=== PATIENT | female | born 1960 | race Caucasian/White ===

== ENCOUNTER 2019-11-21 15:43 | Emergency (ER) | payer OTHER, SELFPAY ==
--- NOTE | ~2019-11-21 | XR_ITS ---
EXAMINATION: XR knee LT min 4V DATE: 11/21/2019 INDICATION: 2 weeks of anterior left knee pain post fall TECHNIQUE: Anteroposterior, 2 oblique, sunrise and crosstable lateral views of the left knee were obt ained COMPARISON: None. FINDINGS: Alignment is normal. No fracture. Osteoarthritis in the medial and patellofemoral compartments with marginal osteophytes and at least moderate joint space narrowing in the medial compartment. Severity of joint space narrowing can however be underestimated on nonweightbearing imaging. Small left knee j oint effusion without layering lipohemarthrosis. There are loose osteochondral bodies in the recesses posterior to the intercondylar notch. Mild infrapatellar soft tissue swelling. IMPRESSION: 1. Small left knee joint effusion without layering lipohemarthrosis or acute osseous abnormality. 2. At least moderate medial compartment predominant osteoarthritis at the left knee. Reviewed, dictated and finalized at location A. IMPRESSION: 1. Small left knee joint effusion without layering lipohemarthrosis or acute os seous abnormality. 2. At least moderate medial compartment predominant osteoarthritis at the left knee.
[2019-11-21 15:50] VITALS: BP 153/88; PULSE 98; RESP 18; TEMP 37.1; O2SAT 96
--- NOTE | 2019-11-21 16:22 | ED.GENADULT ---
HPI - General Adult General Chief complaint: Extremity Injury, Lower Stated complaint: left knee injured Time Seen by Provider: 11/21/19 16:22 Source: patient and RN notes reviewed Mode of arrival: ambulatory Limitations: no limitations History of Present Illness HPI narrative: 58-year-old female presents with complains of left diffuse knee pain and swelling for the past 14 days. Sonya says she fell onto left knee causing injury. Pain increased over the last 24 hours. Knee brace and Tylenol (last today) without relief. History of chronic LT knee pain. No radiation of pain. No numbness or tingling, or bleeding. No loss of mobility. Exacerbating factor consist of bearing weight. No fever or chills. Denies discoloration. Remains active. The patient reports she have not been diagnosed with COVID-19. The patient reports she is not waiting for the results of a COVID-19 lab test. The patient reports she do not have fever, chills, weakness, or fatigue. The patient reports she do not have a new or worsening cough or shortness of breath. Denies chest pain. The patient reports she do not have any rhinorrhea, congestion, sore throat, loss of taste, nausea, vomiting, abdominal pain, and diarrhea. Tolerating po intake well. Denies recent traveling. Denies concerns for COVID-19 or exposures been home with limited outdoor exposure except for essential household needs and return home. At this time, patient is not suspected of having COVID-19. Some parts of this dictation were generated by voice recognition software and may contain typographical and/or grammatical inaccuracies. Related Data Home Medications Medication Instructions Recorded Confirmed No Home Medications 11/21/19 11/21/19 Allergies Allergy/AdvReac Type Severity Reaction Status Date / Time aspirin AdvReac Ulcers Verified 11/21/19 16:16 ibuprofen [From Motrin] AdvReac Ulcers Verified 11/21/19 16:15 Review of Systems Review of Systems: Narrative: CONSTITUTIONAL: Denies fever, chills, sweats. EYES: Denies visual changes, redness, discharge. ENT: Denies rhinorrhea, congestion, sore throat, otalgia. CARDIOVASCULAR: Denies chest pain, palpitations, edema. RESPIRATORY: Denies dyspnea, wheezing, cough. GASTROINTESTINAL: Denies abdominal pain, nausea, vomiting, diarrhea. GENITOURINARY: Denies dysuria, hematuria, abnormal discharge SKIN: Denies rash or itching. MUSCULOSKELETAL: Denies acute back pain or myalgia. Complains of left diffuse knee pain and swelling. NEUROLOGIC: Denies numbness or focal weakness. PSYCHIATRIC: Denies anxiety or depression. All other systems reviewed & are unremarkable except as noted in HPI and below. [facility] Past Medical History Medical History (Updated 11/22/19 @ 00:00 by Jerzy Gilbert) COPD (chronic obstructive pulmonary disease) Joint effusion of knee Left with drainage in the past Surgical History Surgical History (Updated 11/21/19 @ 20:28 by TAZ Cooper) History of cervical spinal surgery History of shoulder surgery Right rotator cuff repair History of spinal surgery History of surgery on wrist Right wrist surgery History of tonsillectomy Family History Family History (Updated 11/21/19 @ 20:30 by TAZ Cooper) Father Unknown family medical history Mother , COPD related to smoking Lung cancer Social History Social History (Updated 11/21/19 @ 20:32 by TAZ Cooper) Smoking packs per day: 0.5 Smoking cigarettes per day: 10.0 Years smoked: 30 Smoking pack-years: 15.00 Smoking status: Current every day smoker Tobacco type: cigarettes Second hand tobacco smoke exposure: No Alcohol intake: current Substance use: never Living arrangements: alone Occupation/Education: unemployed Gender identity (if verbalized by the patient): Female Comments At time of signature, agree with nurse past medical, surgical, social, and family
== END 2019-11-21 16:35 | disposition home or self-care (01) ==
PROVIDERS: Emergency Provider Nurse Practitioner Family
DX: S83.92XA Sprain of unspecified site of left knee, initial encounter (principal); W19.XXXA Unspecified fall, initial encounter; M25.462 Effusion, left knee; F17.210 Nicotine dependence, cigarettes, uncomplicated; J44.9 Chronic obstructive pulmonary disease, unspecified
CPT/HCPCS: 73564; 99213; G0463

== ENCOUNTER 2020-11-29 12:34 | Emergency (ER) | payer OTHER, SELFPAY ==
[2020-11-29 12:41] VITALS: BP 140/80; PULSE 89; RESP 18; TEMP 37.1; O2SAT 95
[2020-11-29 12:50] VITALS: BP 140/80; PULSE 89; RESP 18; TEMP 37.1; O2SAT 95
--- NOTE | 2020-11-29 13:01 | ED.URI ---
HPI - URI/Sore Throat General Chief Complaint: Upper Respiratory Infection Stated Complaint: upper respiratory Time Seen by Provider: 11/29/20 13:12 Source: patient and RN notes reviewed Mode of arrival: ambulatory Limitations: no limitations History of Present Illness HPI Narrative: Sonya is a 59-year-old female who arrives ambulatory to the [facility]. She has a history of pneumonia/bronchitis about 1 year ago patient states she had a cough with occasional green sputum for the last week and a half. Patient denies any shortness of breath denies fever,. Patient states her main complaint is the cough at nighttime. She has taken NyQuil without relief. Patient is talking in full sentences without without distress. MD elicited complaint: cough Related Data Allergies Allergy/AdvReac Type Severity Reaction Status Date / Time aspirin AdvReac Ulcers Verified 11/21/19 16:16 ibuprofen [From Motrin] AdvReac Ulcers Verified 11/21/19 16:15 Review of Systems Review of Systems: CONSTITUTIONAL: Denies body aches, fever, chills, or sweats. EYES: Denies visual changes, redness, or discharge. ENT: Denies rhinorrhea, sore throat, or otalgia. Patient states congestion is just at night. CARDIOVASCULAR: Denies chest pain, palpitations, or edema. RESPIRATORY: + cough GASTROINTESTINAL: Denies abdominal pain, nausea, vomiting, or diarrhea. GENITOURINARY: Denies dysuria or hematuria. SKIN: Denies rash, itching, or wounds. MUSCULOSKELETAL: Denies back pain, joint pain, or myalgia. NEUROLOGIC: Denies headache, numbness, tingling, or weakness. PSYCH: Denies depression or anxiety. All systems reviewed & are unremarkable except as noted in HPI and below PMFSH Past Medical History Medical History COPD (chronic obstructive pulmonary disease) Joint effusion of knee Left with drainage in the past Surgical History Surgical History History of cervical spinal surgery History of shoulder surgery Right rotator cuff repair History of spinal surgery History of surgery on wrist Right wrist surgery History of tonsillectomy Family History Family History Father Unknown family medical history Mother , COPD related to smoking Lung cancer Social History Social History Smoking packs per day: 0.5 Smoking cigarettes per day: 10.0 Years smoked: 30 Smoking pack-years: 15.00 Smoking status: Current every day smoker Tobacco type: cigarettes Second hand tobacco smoke exposure: No Alcohol intake: current Substance use: never Gender identity (if verbalized by the patient): Female Comments At time of signature, I have reviewed and agree with nursing past medical, surgical, social and family history unless otherwise noted. Please see nursing chart for further information. There is no relevant family history pertinent to the presenting complaint Exam Narrative: GENERAL: Well-appearing, well-nourished, and in no acute distress. HEAD: Normocephalic, atraumatic. EYES: EOMI. No redness or drainage. Conjunctivae normal. ENT: Mucous membranes pink and moist. Nares clear TMs Dull, minimal fluidnoted bilaterally. Throat : Post nasal drainage noted. Uvula midline. NECK: Normal AROM. Supple. CHEST: No respiratory distress. scattered wheezes in bilateral bases.. EXTREMITIES: Normal range of motion. No edema. SKIN: Warm, dry, no rash. Capillary refill normal. Normal skin turgor. NEURO: No focal deficits. Alert and oriented x3. Gait steady. PSYCH: Normal affect. No signs of depression or anxiety. Course Vital Signs Vital signs: Vital Signs Temperature 37.1 C 11/29/20 12:41 Pulse Rate 89 11/29/20 12:41 Respiratory Rate 18 11/29/20 12:41 Blood Pressure 140/80 11/29/20 12:41 Pulse
== END 2020-11-29 13:15 | disposition home or self-care (01) ==
PROVIDERS: Emergency Provider Nurse Practitioner Family
DX: J06.9 Acute upper respiratory infection, unspecified (principal); F17.210 Nicotine dependence, cigarettes, uncomplicated; J44.9 Chronic obstructive pulmonary disease, unspecified
CPT/HCPCS: 99213; G0463

== ENCOUNTER 2021-05-13 10:06 | Emergency (ER) | payer OTHER, SELFPAY ==
--- NOTE | ~2021-05-13 | XR_ITS ---
EXAMINATION: XR chest 2V DATE: 05/13/2021 10:32 INDICATION: Cough and congestion TECHNIQUE: PA and lateral views of the chest are obtained. COMPARISON: None available FINDINGS: There are airspace opacities of the right lower lobe. There is no pleural effusion or pneum othorax. The cardiomediastinal silhouette is normal. There is moderate thoracic spondylosis. Partiall y imaged changes of lumbar fusion are noted. There is also surgical change at the cervicothoracic neda ction. IMPRESSION: 1. Right lower lobe airspace opacity which may be infectious or inflammatory however malignancy could have a similar appearance. Recommend followup radiographs in 10-14 days after appropriate therapy to evaluate for improvement/resolution. Reviewed, dictated and finalized at location B. IMPRESSION: 1. Right lower lobe airspace opacity which may be infectious or inflammatory ho wever malignancy could have a similar appearance. Recommend followup radiograph s in 10-14 days after appropriate therapy to evaluate for improvement/resolutio nMirella
--- NOTE | 2021-05-13 10:07 | ED.URI ---
HPI - URI/Sore Throat General Chief Complaint: Upper Respiratory Infection Stated Complaint: congestion cough Time Seen by Provider: 05/13/21 10:07 Source: patient and RN notes reviewed History of Present Illness HPI Narrative: Patient is a 60-year-old female who presents the urgent care with complaints of chest congestion, cough and nasal congestion. Patient states her symptoms started approximately 1 week ago and she is now short of breath. Patient states the cough is productive. Patient has not used anything [id number] for her symptoms and denies fever. Patient also denies any history of lung disease but it is noted in her chart that she has a history of COPD. Patient does not use inhalers at home. No other acute complaints. No acute distress noted. Patient aware of the plan of care. Some parts of this dictation were generated by voice recognition software and may contain typographical and/or grammatical inaccuracies. Related Data Allergies Allergy/AdvReac Type Severity Reaction Status Date / Time aspirin AdvReac Ulcers Verified 11/21/19 16:16 ibuprofen [From Motrin] AdvReac Ulcers Verified 11/21/19 16:15 Review of Systems Review of Systems: CONSTITUTIONAL: Denies fever, chills, or sweats. EYES: Denies visual changes, redness, or discharge. ENT: Reports of nasal congestion without sore throat or otalgia CARDIOVASCULAR: Denies chest pain, palpitations, or edema. RESPIRATORY: Reports a productive cough with dyspnea GASTROINTESTINAL: Denies abdominal pain, nausea, vomiting, or diarrhea. GENITOURINARY: Denies dysuria or hematuria. SKIN: Denies rash or itching. MUSCULOSKELETAL: Denies back pain, joint pain, or myalgia. NEUROLOGIC: Denies headache, numbness, or weakness. All other systems reviewed are negative, except as documented in HPI. [facility] Past Medical History Medical History COPD (chronic obstructive pulmonary disease) Joint effusion of knee Left with drainage in the past Surgical History Surgical History History of cervical spinal surgery History of shoulder surgery Right rotator cuff repair History of spinal surgery History of surgery on wrist Right wrist surgery History of tonsillectomy Family History Family History Father Unknown family medical history Mother , COPD related to smoking Lung cancer Social History Social History Smoking packs per day: 0.5 Smoking cigarettes per day: 10.0 Years smoked: 30 Smoking pack-years: 15.00 Smoking status: Current every day smoker Tobacco type: cigarettes Second hand tobacco smoke exposure: No Alcohol intake: current Substance use: never Gender identity (if verbalized by the patient): Female Comments At the time of my signature, I reviewed and agree with the nursing past medical, surgical, social, and family history. There is no relevant family history pertinent to the patient complaint. Exam Narrative: GENERAL: This is a well-nourished, well-developed patient, in no apparent distress. HEAD: normocephalic, atraumatic. EYES: PERRL. Sclera clear/white. Vision is grossly intact. EARS: External ears normal, auditory canals clear and without drainage, TMs normal without perforation. Hearing grossly intact. NOSE: External nose normal with no obvious nasal discharge, nares without redness, no rhinorrhea. THROAT: Mucous membranes moist, posterior pharynx clear. NECK: Neck supple CARDIOVASCULAR: Regular rate and rhythm without murmurs, gallops, or rubs. RESPIRATORY: Slight crackles bibasilar. Diminished throughout without wheezes SKIN: warm, intact with no suspicious lesions or rash, good texture and turgor. NEURO: awake, alert, and oriented to person, place and time. There were no obvious focal neurolog
[2021-05-13 10:08] VITALS: BP 167/94; PULSE 103; RESP 16; TEMP 37.8; O2SAT 96
[2021-05-13 10:20] VITALS: RESP 30
[2021-05-13] MEDS: ALBUTEROL SULFATE NEB 2.5 MG/3 ML INH INHALATION (10:55)
[2021-05-13] MEDS: IPRATROPIUM BR 0.02% INH SOLN 0.5 MG/2.5 ML VIAL INHALATION (10:55)
== END 2021-05-13 11:23 | disposition home or self-care (01) ==
PROVIDERS: Emergency Provider Nurse Practitioner Family
DX: J40 Bronchitis, not specified as acute or chronic (principal); R91.8 Other nonspecific abnormal finding of lung field; F17.210 Nicotine dependence, cigarettes, uncomplicated; J44.9 Chronic obstructive pulmonary disease, unspecified
CPT/HCPCS: 71046; 94640; 99213; G0463

== ENCOUNTER 2021-08-07 19:21 | Emergency (ER) | payer OTHER, SELFPAY ==
[2021-08-07 19:28] VITALS: BP 159/89; PULSE 103; RESP 18; TEMP 36.5; O2SAT 97
[2021-08-07 19:37] VITALS: BP 159/89; PULSE 103; RESP 18; TEMP 36.5; O2SAT 97
--- NOTE | 2021-08-07 20:00 | ED.URI ---
HPI - URI/Sore Throat General Chief Complaint: Upper Respiratory Infection Stated Complaint: cough Time Seen by Provider: 08/07/21 20:00 Source: patient and RN notes reviewed Mode of arrival: ambulatory Limitations: no limitations History of Present Illness HPI Narrative: 60-year-old female who preswnts to the [facility] with complaints of increase cough with greenish phelgm production for the past 1 week duration. Patient reports that she has some clear nasal drainage, denies any shortness of breath. Patient does have history of COPD and she continues to smoke 1/2 ppd of cigarettes. Patient has not had COVID vaccinations or flu shot.Patient denies any known fevers chills or sweats, denies any body aches. MD elicited complaint: cough and rhinorrhea Related Data Allergies Allergy/AdvReac Type Severity Reaction Status Date / Time aspirin AdvReac Vomiting Verified 08/07/21 19:35 ibuprofen [From Motrin] AdvReac Vomiting Verified 08/07/21 19:35 Review of Systems Review of Systems: CONSTITUTIONAL: Denies fever, chills, or sweats. EYES: Denies visual changes, redness, or discharge. ENT:Positive for rhinorrhea, congestion,no sore throat, or otalgia. CARDIOVASCULAR: Denies chest pain, palpitations, or edema. RESPIRATORY:Positive for productive cough denies dyspnea. GASTROINTESTINAL: Denies abdominal pain, nausea, vomiting, or diarrhea. GENITOURINARY: Denies dysuria or hematuria. SKIN: Denies rash or itching. MUSCULOSKELETAL: Chronic neck and back pain, joint pain, or myalgia. NEUROLOGIC: Denies headache, numbness, or weakness. PSYCHIATRIC: Denies anxiety or depression. [facility] Past Medical History Medical History COPD (chronic obstructive pulmonary disease) Joint effusion of knee Left with drainage in the past Surgical History Surgical History History of cervical spinal surgery History of shoulder surgery Right rotator cuff repair History of spinal surgery History of surgery on wrist Right wrist surgery History of tonsillectomy Family History Family History Father Unknown family medical history Mother , COPD related to smoking Lung cancer Social History Social History (Updated 08/09/21 @ 21:40 by Pamela Frances NP) Smoking packs per day: 0.5 Smoking cigarettes per day: 10.0 Years smoked: 30 Smoking pack-years: 15.00 Smoking status: Current every day smoker Tobacco type: cigarettes Second hand tobacco smoke exposure: No Alcohol intake: current Substance use: never Living arrangements: with family Gender identity (if verbalized by the patient): Female Comments At time of signature, agree with nursing past medical, surgical, social and family history. There is no relevant family history pertinent to the presenting complaint Exam Narrative: GENERAL chronic illl-appearing, well-nourished, and in no acute distress. HEAD: Normocephalic, atraumatic. EYES: PERRLA and EOMI. ENT: Nares red with clear rhinorrhea no epistaxis. Mucous membranes moist.TM's normal with good light reflex, throat light red with no lesions or exudates, tonsils absent NECK: Supple.no lymphadenopathy CHEST: Scattered wheezes to auscultation. No acute respiratory distress. cough productive, SAO2 97% on rooma air HEART: Regular rate and rhythm. No murmur heard. Normal peripheral pulses. ABDOMEN: Soft, nontender, nondistended, normal active bowel sounds. EXTREMITIES: Normal range of motion. No edema. SKIN: Warm, dry, no rash. NEURO: No focal deficits. Alert and oriented x3. Course Course Level of Care: Express Care Visit Vital Signs Vital signs: Vital Signs Temperature 36.5 C 08/07/21 19:28 Pulse Rate 103 H 08/07/21 19:28 Respiratory Rate 18 08/07/21 19:28 Blood Pressure 159/89 H 08/07/21 19:28 Pulse Oximetry 97 08/07
== END 2021-08-07 20:17 | disposition home or self-care (01) ==
PROVIDERS: Emergency Provider Registered Nurse
DX: J44.1 Chronic obstructive pulmonary disease with (acute) exacerbation (principal); F17.210 Nicotine dependence, cigarettes, uncomplicated; Z28.310 Unvaccinated for COVID-19
CPT/HCPCS: 99213; G0463